=== PATIENT | female | born 1975 | race Native Hawaiian/Other Pacific Islander ===

== ENCOUNTER 2022-06-09 08:15 | Outpatient (RCR) | payer OTHER, SELFPAY | END 2022-08-22 11:21 | disposition home or self-care (01) | PROVIDERS: PCP Physician Assistant; Visit Provider Physician Assistant | DX: M54.50 Low back pain, unspecified (principal); M25.562 Pain in left knee; Z51.89 Encounter for other specified aftercare | CPT/HCPCS: 97110; 97140 ==

== ENCOUNTER 2023-05-06 14:30 | Outpatient (RCR) | payer OTHER, SELFPAY | END 2023-09-03 23:59 | disposition home or self-care (01) | PROVIDERS: PCP Physician Assistant; Visit Provider Family Medicine | DX: M54.42 Lumbago with sciatica, left side (principal); M54.41 Lumbago with sciatica, right side; G89.29 Other chronic pain; S89.92XD Unspecified injury of left lower leg, subsequent encounter; M25.562 Pain in left knee; M62.81 Muscle weakness (generalized); Z74.09 Other reduced mobility; Z51.89 Encounter for other specified aftercare | CPT/HCPCS: 97110; 97140; 97163; 97535; 97760 ==

== ENCOUNTER 2025-05-02 14:45 | Outpatient (RCR) | payer OTHER, SELFPAY ==
--- NOTE | 2025-06-28 14:30 | REH.OT ---
Pt did not return to therapy. D/C from OT. Unsure of progress of goals as pt did not return.
== END 2025-06-28 16:36 | disposition home or self-care (01) ==
PROVIDERS: PCP Family Medicine; Visit Provider Family Medicine
DX: M79.641 Pain in right hand (principal); M79.642 Pain in left hand; Z51.89 Encounter for other specified aftercare
CPT/HCPCS: 97033; 97035; 97110; 97140; 97165; 97530; X5282